=== PATIENT | female | born 1990 | race Caucasian/White ===

== ENCOUNTER 2017-06-23 04:08 | Emergency (ER) | payer OTHER ==
[~2017-06-23] VITALS: Ht 160 cm; Wt 86.2 kg
[2017-06-23] MEDS ORDERED: LIDOCAINE VISCOUS 2% UD 15 ML UDC ONE (04:59)
[2017-06-23] MEDS ORDERED: MAG HYDROX/AL HYDROX/SIMETH 30 ML UDC ONE (04:59)
[2017-06-23] MEDS ORDERED: MAG HYDROX/AL HYDROX/SIMETH 30 ML UDC PO ONE (05:00)
[2017-06-23] MEDS ORDERED: LIDOCAINE VISCOUS 2% UD 15 ML UDC MM ONE (05:00)
[2017-06-23 05:24] LABS: BASOPHILS % (AUTO) 0.5 % (0.0-2.0); EOSINOPHILS # (AUTO) 0.1 /CMM (0.0-0.7); EOSINOPHILS % (AUTO) 1.2 % (0.0-6.0); HEMATOCRIT 40 % (33-45); HEMOGLOBIN 13.6 g/dL (11.5-14.8); LYMPHOCYTES # (AUTO) 1.8 /CMM (0.8-4.8); LYMPHOCYTES % (AUTO) 27.9 % (20.0-44.0); MEAN CORPUSCULAR HEMOGLOBIN 30 PG (26.0-33.0); MEAN CORPUSCULAR HGB CONC 34 g/dl (31.0-36.0); MEAN CORPUSCULAR VOLUME 87 fL (82-100); MONOCYTES # (AUTO) 0.5 /CMM (0.1-1.30); MONOCYTES % (AUTO) 8.5 % (2.0-12.0); NEUTROPHILS % (AUTO) 61.9 % (43.0-81.0); PLATELET COUNT (AUTO) 390 /CMM (150-450); RDW COEFFICIENT OF VARIATION 12.4 (11.5-15.0); RED BLOOD CELL COUNT(AUTO) 4.53 MIL/uL (4.0-5.2); WHITE BLOOD COUNT (AUTO) 6.4 K/uL (4.3-11.0)
--- NOTE | 2017-06-23 05:24 | NUR ---
26 YO FEMALE BB SELF, C/O EPIGASTRIC PAIN. PT AMBULATED TO ER BED, SKIN WARM AND DRY, RR EVEN AND UNLABORED. AWAITING ORDERS FROM PROVIDER, WILL CONTINUE TO MONITOR
[2017-06-23 05:29] LABS: APPEARANCE,URINE CLEAR (CLEAR); BILIRUBIN,URINE NEGATIVE (NEGATIVE); BLOOD, URINE NEGATIVE Ery/uL (NEGATIVE); COLOR,URINE YELLOW (YELLOW); KETONES,URINE NEGATIVE (NEGATIVE); LEUKOCYTE ESTERASE ,URINE 1+ (NEGATIVE); NITRITE, URINE NEGATIVE (NEGATIVE); PROTEIN,URINE NEGATIVE (NEGATIVE); UGLUCOSE NEGATIVE (NEGATIVE); UROBILINOGEN,URINE 0.2 EU/dL (0.2)
[2017-06-23 05:36] LABS: CALCIUM, SERUM 9.2 mg/dL (8.5-10.1); CREATININE 0.8 mg/dL (0.6-1.3); POTASSIUM 3.7 mmol/L (3.5-5.1)
[2017-06-23 05:42] LABS: ALBUMIN 3.8 g/dL (3.4-5.0); BILIRUBIN,DIRECT 0.1 mg/dL (0.0-0.2); BILIRUBIN,TOTAL 0.5 mg/dL (0.2-1.0); TOTAL PROTEIN, SERUM 7.5 g/dL (6.4-8.2)
[2017-06-23 05:50] LABS: PREGNANCY TEST URINE QUAL NEGATIVE (NEGATIVE)
[2017-06-23 05:51] LABS: BACTERIA,URINE None seen /HPF (None Seen); RBC,URINE NONE SEEN /HPF (0-2); SQUAMOUS EPITHELIAL CELL,UR Few /HPF (None Seen); WBC,URINE 0-2 /HPF (0-3)
[2017-06-23 06:18] VITALS: BP 117/76
--- NOTE | 2017-06-23 06:19 | NUR ---
Patient discharged to home in stable condition. Written and verbal after care instructions given. Patient verbalizes understanding of instruction. PT ambulatory with a steady gait
== END 2017-06-23 06:18 | disposition home or self-care (01) ==
LOC: ER 04:12
DX: R10.13 Epigastric pain (principal)
CPT/HCPCS: 36415; 80048; 80076; 81001; 83690; 84703; 85025; 87086; 93005; 99285; A4606; 81000-TC; Z7610